=== PATIENT | female | born 1960 | race Caucasian/White ===

== ENCOUNTER 2016-07-06 05:53 | Inpatient (IN) | payer OTHER ==
[2016-06-28 16:33] LABS: BASOPHILS 0.5 %; BASOPHILS ABSOLUTE 0.02 10/3/uL (0.0-0.16); EOSINOPHILS ABSOLUTE 0.24 10/3/uL (0.0-0.53); HEMATOCRIT 38.1 % (36.0-48.0); HEMOGLOBIN 12.9 g/dL (12.0-16.0); IMMATURE GRANULOCYTES 0.2 %; IMMATURE GRANULOCYTES ABSOLUTE 0.01 10/3/uL (0.0-0.11); LYMPHOCYTES 39.4 %; LYMPHOCYTES ABSOLUTE 1.58 10/3/uL (0.67-4.30); MEAN CORPUS HGB CONC 33.9 g/dL (32.0-36.0); MEAN CORPUSCULAR HEMOGLOB 32.2 pg (26.0-34.0); MEAN PLATELET VOLUME 9.8 fL (9.2-13.0); MONOCYTES 5.5 %; MONOCYTES ABSOLUTE 0.22 10/3/uL (0.21-1.20); NEUTROPHILS 48.4 %; NEUTROPHILS ABSOLUTE 1.94 10/3/uL (2.02-8.40); PLATELET COUNT 279 10/3/uL (150-400); RBC DISTRIBUTION WIDTH 14.5 % (12.0-16.0); RED CELL COUNT 4.01 10/6/uL (4.0-5.6)
[2016-06-28 16:34] LABS: MANUAL DIFF NO %
[2016-06-28 16:43] LABS: INTERNATIONAL NORMAL RATI 1.2 UNITS (-); PROTIME (NOT ORD) 14.6 SEC (12.0-14.5)
[2016-06-28 16:44] LABS: PARTIAL THROMBO TIME 38.5 SEC (22.5-37.2)
[2016-06-28 16:51] LABS: ALBUMIN 4.4 G/DL (3.5-5.0); ALKALINE PHOSPHATASE 165 U/L (45-117); BUN (BLOOD UREA NITROGEN) 19 MG/DL (6-23); CALCIUM, SERUM 9.1 MG/DL (8.5-10.4); CHLORIDE, SERUM 107 MMOL/L (96-112); CO2 (CARBON DIOXIDE) 23 MMOL/L (24-34); CREATININE 1.23 MG/DL (0.55-1.02); GFR AFRICAN AMERICAN 57 ML/MIN (>=60); GFR NON AFRICAN AMERICAN 49 ML/MIN (>=60); GLOBULIN 4.2 G/DL (2.5-4.1); GLUCOSE, SERUM 100 MG/DL (60-99); POTASSIUM, SERUM 3.7 MMOL/L (3.5-5.3); SGOT(AST) 69 U/L (5-40); SGPT(ALT) 82 U/L (5-65); SODIUM, SERUM 141 MMOL/L (135-148); TOTAL BILIRUBIN 0.7 MG/DL (0-1.2); TOTAL PROTEIN 8.6 G/DL (6.0-8.5)
--- NOTE | ~2016-07-06 | PREOPHP ---
PreOp History and Physical [facility] [address] [place]. [address] NAME: JASMYN MOLINA : 58 STATUS : PRE IN PAT#: [id number] AGE: 55 ADM/REG DATE : MR#: [id number] REPORT SERV DATE: 07/06/16 DICTATED BY: ERIKA URBAN III DATE: 06/18/16 REPORT STATUS : Draft TRANSCRIBED BY: MODL DATE: 06/18/16 HISTORY OF PRESENT ILLNESS: This 55-year-old female comes for partial gastrectomy for a nonhealing gastric ulcer refractory to nonoperative management. The patient has a documented antral ulcer which been present for almost one year. This has been refractory and unresponsive to aggressive medical management. Repeat endoscopies continued to show a crated ulcer in the gastric antrum, about 1 cm in size. This has been associated with abdominal pain, nausea, and heartburn. The patient's symptoms have become progressively worse and interfering with her quality of life. The pain has become progressively worse as well. The patient is felt to have failed nonoperative management. She comes now for partial gastrectomy. PAST MEDICAL HISTORY: 1. Hypertension. 2. Bueno's esophagitis. 3. Depression. 4. History of migraine headaches. MEDICATIONS: Phenergan; Prograf; dicyclomine; Imuran; and amlodipine. ALLERGIES: MORPHINE, ZOFRAN, AND ZOSYN. PAST SURGICAL HISTORY: Includes liver transplant and appendectomy. FAMILY HISTORY: Remarkable for stroke. SOCIAL HISTORY: No history of tobacco or alcohol use. REVIEW OF SYSTEMS: The patient complains of abdominal pain, shortness of breath, reflux, indigestion, nausea, vomiting, frequent headaches, anxiety, and depression. PHYSICAL EXAMINATION: GENERAL: This is a female, in no acute distress. She is alert and oriented x3. VITAL SIGNS: Blood pressure 129/82, pulse 89, and temperature is 98.4. HEENT: Unremarkable. Cranial nerves 2 through 12 are normal. LUNGS: Clear. CARDIAC: Normal. ABDOMEN: Soft and nontender. EXTREMITIES: Unremarkable. LABORATORY: Panendoscopy performed 05/25/2016 shows a crated ulcer in the gastric antrum, 1 cm in size, deeply cratered at 8 mm deep. Gastritis is also noted. Biopsy shows acute gastritis with ulceration. Previous endoscopies including endoscopy on 04/27/2016 showed this same ulcer which has failed to heal. ASSESSMENT: PreOp History and Physical [address] [address] NAME: JASMYN MOLINA : 58 STATUS : PRE IN PAT#: [id number] AGE: 55 ADM/REG DATE : MR#: [id number] REPORT SERV DATE: 07/06/16 DICTATED BY: ERIKA URBAN III DATE: 06/18/16 REPORT STATUS : Draft TRANSCRIBED BY: MODL DATE: 06/18/16 1. This is a 55-year-old female with nonhealing gastric ulcer, refractory to medical management, associated with severe abdominal pain. 2. History of liver transplant in the past. 3. Migraine headaches. 4. Depression. 5. Hypertension. PLAN: The patient comes to the operating room now for partial gastrectomy. This procedure, the risks, benefits, and alternatives, including but not limited to the risk for bleeding, infection, enterotomy, injury to abdominal structure, postop small bowel obstruction, ileus, incisional hernia, dehiscence, anastomotic leak, resulting in peritonitis, sepsis, and , and requiring reoperation, duodenal stump leak resulting in peritonitis, sepsis, and , common bile duct injury, bile leak, gastroparesis, gastric outlet obstruction, recurrent ulcer disease, the fact that her nutritional habits will be changed by the gastrectomy and unforeseen complications including deep venous thrombosis, pulmonary embolus, myocardial infarction, stroke, pneumonia, and , have been fully and completely explained to the patient at length prior to surgery. The fact that this is a major operation with risk for major morbidity and mortality has been explained. The expected length of recovery has been explained. The patient's questions have been answered. She fully and completely understands the risks and agrees to the surgery as planned. HAI/BRIANA Erika Urban III, M.D. / [id number]
--- NOTE | ~2016-07-06 | DS ---
Discharge Summary [facility] [address] [place]. [address] NAME: JASMYN MOLINA : 58 STATUS : DIS IN PAT#: [id number] AGE: 55 ADM/REG DATE : 07/06/16 MR#: [id number] REPORT SERV DATE: 07/25/16 DICTATED BY: ERIKA URBAN III DATE: 07/24/16 REPORT STATUS : Draft TRANSCRIBED BY: BRIANA DATE: 07/24/16 Data Collection from hospitalization DISCHARGE DIAGNOSES: 1. Distal gastric ulcer refractory to nonoperative management with history of liver transplant. 2. Hypertension. 3. Bueno esophagitis. 4. Depression. 5. History of migraine headaches. CONSULTATIONS: None. PROCEDURES PERFORMED: Distal gastrectomy with Billroth II gastrojejunostomy on 07/06/2016. PATHOLOGY: Distal stomach partial gastrectomy - acute gastritis with ulcer. No intestinal metaplasia or dysplasia. Margins viable. MEDICATIONS: Norvasc 10 mg every morning, Imuran 75 mg twice a day, Bentyl 20 mg twice a day, Percocet 7.5/325 one tablet times a day as needed, Protonix 40 mg every morning, Phenergan 25 mg every six hours as needed/25 mg three times a day as needed, and Prograf 2 mg twice a day. CONDITION AT DISCHARGE: Stable. DISPOSITION: The patient was discharged home on a soft post gastrectomy diet with activities as instructed. She would follow up with me on 07/31/2016. HOSPITAL COURSE: This is a 55-year-old female who has a history of distal gastric ulcer, which had been refractory to medical management. The patient had been on appropriate medical management chronically and the ulcer has persisted in spite of this. This had been associated with severe symptoms. It was felt that partial gastrectomy was indicated for this antral ulcer, which has failed to heal. Treatment options were discussed and it was elected to proceed with surgical intervention. She was admitted to the hospital at this time for further evaluation and treatment. Upon admission, she was taken to the operating room where she underwent the above-mentioned procedure. She tolerated this well, and there were no complications. Postoperatively, the epidural catheter was removed and the tip was intact. Dilaudid DENTAL PROSTHETIST was started. On postop day #1, she had some nausea. She remained afebrile. Her abdomen was soft. She was being held n.p.o. with the NG tube in place. On 07/08/2016, she did complain of pain and nausea. She had no vomiting at this time. She had no shortness of breath. The Campbell catheter remained in place. DENTAL PROSTHETIST Dilaudid was increased. On 07/09/2016, she was evaluated by Physical Therapy. She was up sitting in a chair. She was beginning to ambulate. Her pain was controlled with the DENTAL PROSTHETIST. The Campbell catheter was removed. NG tube was at gravity drainage. She continued to have some nausea. Reglan was provided. On 07/12/2016, she said she was feeling better and had less nausea. She was passing gas per Discharge Summary [address] [address] NAME: JASMYN MOLINA : 58 STATUS : DIS IN [facility]#: [id number] AGE: 55 ADM/REG DATE : 07/06/16 MR#: [id number] REPORT SERV DATE: 07/25/16 DICTATED BY: ERIKA URBAN III DATE: 07/24/16 REPORT STATUS : Draft TRANSCRIBED BY: MODL DATE: 07/24/16 rectum. The NG tube was still in place. The next day, she had no further nausea. She was progressing well. The NG tube was removed. Clear liquids were started. On 07/14/2016, IV fluids were discontinued. She was placed on full liquids. She continued to do well. Over the next couple of days, discharge planning was performed. On 07/16/2016, she felt well and wanted to go home. She was eating well. Discharge instructions were given. Due to her improved and stable condition, she was discharged home with the above-stated instructions. Information collected by: Ginny Frias I submit the above information as my discharge summary. VALENTINA/BRIANA Erika Urban III, M.D. / [id number] CC: Angeles Amaya III, M.D.
--- NOTE | ~2016-07-06 | OP ---
Record Of Operation [facility] [address] [place]. [address] NAME: JASMYN MOLINA : 58 STATUS : ADM IN [facility]#: [id number] AGE: 55 ADM/REG DATE : 07/06/16 MR#: [id number] REPORT SERV DATE: 07/06/16 DICTATED BY: ERIKA URBAN III DATE: 07/06/16 REPORT STATUS : Draft TRANSCRIBED BY: MODSonam DATE: 07/06/16 DATE OF PROCEDURE: 07/06/2016 PREOPERATIVE DIAGNOSES: Distal gastric ulcer, refractory to nonoperative management with history of liver transplant. POSTOPERATIVE DIAGNOSES: Distal gastric ulcer, refractory to nonoperative management with history of liver transplant. PROCEDURE: Distal gastrectomy with Billroth 2 gastrojejunostomy. SURGEON: Erika Urban M.D. ANESTHESIA: General with intubation. COMPLICATIONS: None. ESTIMATED BLOOD LOSS: 25 mL. SPECIMENS: Distal stomach. DRAINS: Jarred-Browning in abdominal cavity and [place] in subcutaneous tissue. LAP AND SPONGE COUNT: Correct x3. BRIEF HISTORY: This 55-year-old female has a history of distal gastric ulcer which has been refractory to medical management. The patient has been on appropriate medical management chronically and the ulcer has persisted in spite of this. This has been associated with severe symptoms. It was felt that partial gastrectomy was indicated for this antral ulcer which has failed to heal. The surgery, the procedure risks, benefits, and alternatives, including but not limited to the risk for bleeding, infection, enterotomy, injury to abdominal structure, postop small bowel obstruction, ileus, incisional hernia, dehiscence, anastomotic leak, requiring reoperation or resulting in peritonitis, sepsis, and , gastroparesis gastric bowel obstruction, recurrent ulcer disease, duodenal stump leak resulting in peritonitis, sepsis, and , and unforeseen complications including deep venous thrombosis, pulmonary embolus, myocardial infarction, stroke, pneumonia, and , were fully and completely explained to the patient and family at length prior to surgery. The fact that this was a major operation with risk for major morbidity and mortality was explained as well as expected length of recovery. The possibility of gastroparesis and gastric outlet obstruction and changes in her dietary habits after surgery was explained. The patient's family had questions which were answered. They fully understood the risks and agreed to the surgery as planned. FINDINGS: The patient had an extremely large transplanted liver. This was densely adherent to the underside of the abdominal wall making entry into the abdominal cavity difficult and extended the length of procedure by 55%. For this reason, a modifier 22 was added to the Record Of Operation [facility] [address]. [address] NAME: JASMYN MOLINA : 58 STATUS : ADM IN PAT#: [id number] AGE: 55 ADM/REG DATE : 07/06/16 MR#: [id number] REPORT SERV DATE: 07/06/16 DICTATED BY: ERIKA URBAN III DATE: 07/06/16 REPORT STATUS : Draft TRANSCRIBED BY: MODL DATE: 07/06/16 procedure code. The patient had a chronic deep ulcer in the distal antrum. PROCEDURE IN DETAIL: After being properly identified and after discussing the risks of surgery with the patient and the family again in the preoperative area, she was taken to the operating room and placed in the supine position on the operating room table. General anesthesia was administered. She was intubated without difficulty. A Campbell catheter and an NG tube were inserted. The abdomen was prepped and draped sterilely in the usual fashion. After an appropriate "time-out" per JCAHO standards, a midline incision was made from just beneath the xiphoid process towards the umbilicus. The incision was continued through the subcutaneous tissue. Hemostasis was controlled with cautery. The incision was continued through the fascia. We entered the abdominal cavity very carefully. The patient was noted to have a very enlarged transplanted liver which extended midway between the xiphoid process and the umbilicus. The liver was densely adherent to the underside of the abdominal wall. The liver capsule was adherent to the fascia. Using careful and sharp dissection, the abdominal cavity was entered and the liver capsule was dissected away from the abdominal wall taking great care not to injure the liver. In this way, we were able to enter the right upper quadrant. The liver itself appeared to be normal other than being somewhat enlarged. There was no evidence for carcinomatosis. There was a palpable ulcer in the distal antrum at the level of the pylorus corresponding to a palpable mass. The exploration was otherwise unremarkable. With the abdominal cavity entered, the greater curve of the stomach was defined from the midbody of the stomach to the pylorus. The gastrocolic ligament was divided along the greater curve of the stomach. Using Harmonic scalpel again from the mid body of the stomach to the pylorus. Similarly, the corresponding portion of the lesser curve of the stomach was also exposed by dividing the lesser omentum. We divided the stomach transversely with the TAMARA stapler, at the junction of the antrum and the body. The dissection was continued to just beyond the pylorus. The first portion of the duodenum was then divided with a TA-60 stapler. The distal stomach or antrum and proximal duodenum was thus removed and sent to pathology interpreted as containing the ulcer. The duodenal stump was then oversewn with interrupted 3-0 silk sutures. This resulted in good inversion of the stump with no tension. We then performed an [id number] side jejunal anastomosis in a Billroth II fashion. We identified the ligament of Treitz and the proximal jejunum just beyond this was brought through a window in the mesentery to the transverse colon. The gastrojejunostomy was performed in two layers, using interrupted 3-0 silk sutures on the outer posterior layer, running 3-0 chromic suture on the inner layer, and interrupted 3-0 silk sutures on the outer anterior layer. The lesser curve of the stomach which was not using the anastomosis was oversewn with interrupted 3-0 silk sutures. The injury too was positioned just proximal to the anastomosis. Upon completion of this, the anastomosis was widely patent to palpation. It was not twisted or kinked in any way. It was not in any tension. It was secured to the mesentery of the transverse colon with interrupted 3-0 silk sutures. Great care was taken to be certain that the afferent and efferent limbs were in good position and not twisted or kinked in any way. Record Of Operation [facility] [address] [facility] [place]. [address] NAME: JASMYN MOLINA : 58 STATUS : ADM IN [facility]#: [id number] AGE: 55 ADM/REG DATE : 07/06/16 MR#: [id number] REPORT SERV DATE: 07/06/16 DICTATED BY: ERIKA URBAN III DATE: 07/06/16 REPORT STATUS : Draft TRANSCRIBED BY: MODL DATE: 07/06/16 The entire abdominal cavity was irrigated copiously with saline. Hemostasis was assured. Evicel glue was placed over the duodenal stump. A Jarred-Browning drain was brought through a separate stab wound and to the right incision and placed in the right upper quadrant. The fascia was then carefully closed with a running looped #1 PDS suture. The subcutaneous tissue was closed with running 3-0 chromic suture over a [place] drain which was brought out through the inferior aspect of the incision. The skin was closed with running subcuticular 4-0 Monocryl stitch. Dressings were applied. Anesthesia was reversed. The patient was taken to the recovery room in stable condition. She tolerated the procedure well. Her family was informed of the results of surgery. The patient will remain in the hospital for postoperative care. RHJ/HAIML Erika Urban III, M.D. / [id number] CC: Angeles Amaya III, MD
[~2016-07-06 05:53] MED LIST: *UNABLE3; ACTONEL150 MG PO; AMIT25 PO; AUG500 PO; BENTYL20 PO; BLOOD PRESSURE RX PO; DOMPERIDONE; FISH-EPA1000 MG PO; FLOVENT110 INH; HORMONE PATCH; IMU PO; KAPIDEX60 MG PO; KLONO5 PO; NEUR300 PO; NEXIUM; NEXIUM20 M1 PO; NEXIUM40 PO; NORCO1 TA1 PO; NORV10 PO; NYS500UDL PO; OXYCOD PO; PHENADOZ12.5 MG RE; PR12.5 PO; PR25 PO; PR25R PR; PRILO PO; PROGRAF0.5 PO; PROGRAF1; PROGRAF1 OR; PROGRAF1 PO; PROTONIX PO; SUCR PO; TOPAMAX25 PO; TRAZ100 PO; X5 PO; ZOL50 PO
[2016-07-07 13:04] LABS: BASOPHILS 0 %; EOSINOPHILS 0.1 %; EOSINOPHILS ABSOLUTE 0.01 10/3/uL (0.0-0.53); HEMATOCRIT 37.5 % (36.0-48.0); HEMOGLOBIN 13.4 g/dL (12.0-16.0); IMMATURE GRANULOCYTES 0.4 %; IMMATURE GRANULOCYTES ABSOLUTE 0.04 10/3/uL (0.0-0.11); LYMPHOCYTES ABSOLUTE 1.25 10/3/uL (0.67-4.30); MEAN CORPUSCULAR HEMOGLOB 33.6 pg (26.0-34.0); MEAN PLATELET VOLUME 9.3 fL (9.2-13.0); MONOCYTES 6.5 %; MONOCYTES ABSOLUTE 0.74 10/3/uL (0.21-1.20); NEUTROPHILS ABSOLUTE 9.35 10/3/uL (2.02-8.40); PLATELET COUNT 249 10/3/uL (150-400); RBC DISTRIBUTION WIDTH 14.4 % (12.0-16.0); RED CELL COUNT 3.99 10/6/uL (4.0-5.6)
[2016-07-07 13:06] LABS: MANUAL DIFF NO %; MEAN CORPUS HGB CONC 35.7 g/dL (32.0-36.0); WHITE BLOOD CELLS 11.4 10/3/uL (4.5-10.5)
[2016-07-07 13:16] LABS: ALKALINE PHOSPHATASE 163 U/L (45-117); CREATININE 0.83 MG/DL (0.55-1.02); GFR AFRICAN AMERICAN 91 ML/MIN (>=60); GFR NON AFRICAN AMERICAN 79 ML/MIN (>=60); POTASSIUM, SERUM 3.7 MMOL/L (3.5-5.3); SGOT(AST) 141 U/L (5-40); SGPT(ALT) 106 U/L (5-65); SODIUM, SERUM 135 MMOL/L (135-148); TOTAL PROTEIN 7.5 G/DL (6.0-8.5)
[2016-07-07 13:17] LABS: A/G RATIO 0.8 (0.7-1.9); ALBUMIN 3.4 G/DL (3.5-5.0); BUN (BLOOD UREA NITROGEN) 8 MG/DL (6-23); CALCIUM, SERUM 7.9 MG/DL (8.5-10.4); CHLORIDE, SERUM 97 MMOL/L (96-112); CO2 (CARBON DIOXIDE) 28 MMOL/L (24-34); GLOBULIN 4.1 G/DL (2.5-4.1); GLUCOSE, SERUM 164 MG/DL (60-99); TOTAL BILIRUBIN 1.3 MG/DL (0-1.2)
[2016-07-08 07:23] LABS: BASOPHILS 0.1 %; BASOPHILS ABSOLUTE 0.01 10/3/uL (0.0-0.16); EOSINOPHILS 0.1 %; EOSINOPHILS ABSOLUTE 0.01 10/3/uL (0.0-0.53); HEMOGLOBIN 12.3 g/dL (12.0-16.0); IMMATURE GRANULOCYTES 0.6 %; IMMATURE GRANULOCYTES ABSOLUTE 0.05 10/3/uL (0.0-0.11); MEAN CORPUS HGB CONC 35.1 g/dL (32.0-36.0); MEAN CORPUSCULAR HEMOGLOB 33.3 pg (26.0-34.0); MEAN CORPUSCULAR VOLUME 94.9 fL (80-100); MONOCYTES 7.9 %; NEUTROPHILS 74.3 %; NEUTROPHILS ABSOLUTE 6.56 10/3/uL (2.02-8.40); PLATELET COUNT 222 10/3/uL (150-400); RBC DISTRIBUTION WIDTH 14.6 % (12.0-16.0); RED CELL COUNT 3.69 10/6/uL (4.0-5.6); WHITE BLOOD CELLS 8.8 10/3/uL (4.5-10.5)
[2016-07-08 07:28] LABS: MANUAL DIFF NO %
[2016-07-08 07:37] LABS: BUN (BLOOD UREA NITROGEN) 7 MG/DL (6-23); CALCIUM, SERUM 8.3 MG/DL (8.5-10.4); CHLORIDE, SERUM 105 MMOL/L (96-112); CO2 (CARBON DIOXIDE) 27 MMOL/L (24-34); CREATININE 0.78 MG/DL (0.55-1.02); GFR AFRICAN AMERICAN 98 ML/MIN (>=60); GFR NON AFRICAN AMERICAN 85 ML/MIN (>=60); GLUCOSE, SERUM 132 MG/DL (60-99); POTASSIUM, SERUM 3.8 MMOL/L (3.5-5.3); SODIUM, SERUM 141 MMOL/L (135-148)
[2016-07-10 05:05] LABS: BASOPHILS 0 %; EOSINOPHILS 4.3 %; EOSINOPHILS ABSOLUTE 0.25 10/3/uL (0.0-0.53); HEMATOCRIT 28.8 % (36.0-48.0); IMMATURE GRANULOCYTES 0.2 %; IMMATURE GRANULOCYTES ABSOLUTE 0.01 10/3/uL (0.0-0.11); LYMPHOCYTES 23.3 %; LYMPHOCYTES ABSOLUTE 1.37 10/3/uL (0.67-4.30); MEAN CORPUS HGB CONC 34.7 g/dL (32.0-36.0); MEAN CORPUSCULAR HEMOGLOB 33.6 pg (26.0-34.0); MEAN CORPUSCULAR VOLUME 96.6 fL (80-100); MEAN PLATELET VOLUME 8.9 fL (9.2-13.0); MONOCYTES 8.8 %; MONOCYTES ABSOLUTE 0.52 10/3/uL (0.21-1.20); NEUTROPHILS 63.4 %; NEUTROPHILS ABSOLUTE 3.73 10/3/uL (2.02-8.40); PLATELET COUNT 191 10/3/uL (150-400); RBC DISTRIBUTION WIDTH 14.2 % (12.0-16.0); RED CELL COUNT 2.98 10/6/uL (4.0-5.6); WHITE BLOOD CELLS 5.9 10/3/uL (4.5-10.5)
[2016-07-10 05:06] LABS: MANUAL DIFF NO %
[2016-07-10 05:15] LABS: BUN (BLOOD UREA NITROGEN) 5 MG/DL (6-23); CALCIUM, SERUM 8.1 MG/DL (8.5-10.4); CHLORIDE, SERUM 104 MMOL/L (96-112); CO2 (CARBON DIOXIDE) 26 MMOL/L (24-34); GFR AFRICAN AMERICAN 96 ML/MIN (>=60); GFR NON AFRICAN AMERICAN 82 ML/MIN (>=60); GLUCOSE, SERUM 142 MG/DL (60-99); POTASSIUM, SERUM 3.6 MMOL/L (3.5-5.3); SODIUM, SERUM 140 MMOL/L (135-148)
[2016-07-11 05:54] LABS: BASOPHILS 0.2 %; BASOPHILS ABSOLUTE 0.01 10/3/uL (0.0-0.16); EOSINOPHILS 4.8 %; EOSINOPHILS ABSOLUTE 0.28 10/3/uL (0.0-0.53); HEMATOCRIT 29.1 % (36.0-48.0); HEMOGLOBIN 10.2 g/dL (12.0-16.0); IMMATURE GRANULOCYTES 0.3 %; IMMATURE GRANULOCYTES ABSOLUTE 0.02 10/3/uL (0.0-0.11); LYMPHOCYTES 27.3 %; LYMPHOCYTES ABSOLUTE 1.59 10/3/uL (0.67-4.30); MEAN CORPUS HGB CONC 35.1 g/dL (32.0-36.0); MEAN CORPUSCULAR HEMOGLOB 33.7 pg (26.0-34.0); MEAN PLATELET VOLUME 8.7 fL (9.2-13.0); MONOCYTES 9.9 %; MONOCYTES ABSOLUTE 0.58 10/3/uL (0.21-1.20); NEUTROPHILS 57.5 %; NEUTROPHILS ABSOLUTE 3.35 10/3/uL (2.02-8.40); PLATELET COUNT 184 10/3/uL (150-400); RBC DISTRIBUTION WIDTH 14.1 % (12.0-16.0); RED CELL COUNT 3.03 10/6/uL (4.0-5.6); WHITE BLOOD CELLS 5.8 10/3/uL (4.5-10.5)
[2016-07-11 05:57] LABS: MANUAL DIFF NO %
[2016-07-11 06:08] LABS: BUN (BLOOD UREA NITROGEN) 6 MG/DL (6-23); CALCIUM, SERUM 8.2 MG/DL (8.5-10.4); CHLORIDE, SERUM 105 MMOL/L (96-112); CO2 (CARBON DIOXIDE) 26 MMOL/L (24-34); GFR AFRICAN AMERICAN 83 ML/MIN (>=60); GFR NON AFRICAN AMERICAN 71 ML/MIN (>=60); GLUCOSE, SERUM 124 MG/DL (60-99); POTASSIUM, SERUM 3.4 MMOL/L (3.5-5.3); SODIUM, SERUM 141 MMOL/L (135-148)
[2016-07-12 05:48] LABS: BASOPHILS 0.2 %; BASOPHILS ABSOLUTE 0.01 10/3/uL (0.0-0.16); EOSINOPHILS 8.2 %; EOSINOPHILS ABSOLUTE 0.47 10/3/uL (0.0-0.53); HEMATOCRIT 30.5 % (36.0-48.0); HEMOGLOBIN 10.5 g/dL (12.0-16.0); IMMATURE GRANULOCYTES 0.2 %; IMMATURE GRANULOCYTES ABSOLUTE 0.01 10/3/uL (0.0-0.11); LYMPHOCYTES 38.4 %; MEAN CORPUS HGB CONC 34.4 g/dL (32.0-36.0); MEAN CORPUSCULAR HEMOGLOB 32.8 pg (26.0-34.0); MEAN CORPUSCULAR VOLUME 95.3 fL (80-100); MEAN PLATELET VOLUME 8.8 fL (9.2-13.0); MONOCYTES 8.7 %; NEUTROPHILS 44.3 %; NEUTROPHILS ABSOLUTE 2.54 10/3/uL (2.02-8.40); PLATELET COUNT 223 10/3/uL (150-400); WHITE BLOOD CELLS 5.7 10/3/uL (4.5-10.5)
[2016-07-12 05:58] LABS: BUN (BLOOD UREA NITROGEN) 4 MG/DL (6-23); CALCIUM, SERUM 7.9 MG/DL (8.5-10.4); CHLORIDE, SERUM 105 MMOL/L (96-112); CO2 (CARBON DIOXIDE) 26 MMOL/L (24-34); CREATININE 0.81 MG/DL (0.55-1.02); GFR AFRICAN AMERICAN 94 ML/MIN (>=60); GFR NON AFRICAN AMERICAN 81 ML/MIN (>=60); GLUCOSE, SERUM 132 MG/DL (60-99); POTASSIUM, SERUM 3.5 MMOL/L (3.5-5.3); SODIUM, SERUM 142 MMOL/L (135-148)
[2016-07-12 06:02] LABS: MANUAL DIFF NO %
[2016-07-13 06:51] LABS: BUN (BLOOD UREA NITROGEN) 5 MG/DL (6-23); CALCIUM, SERUM 8.2 MG/DL (8.5-10.4); CHLORIDE, SERUM 107 MMOL/L (96-112); CO2 (CARBON DIOXIDE) 23 MMOL/L (24-34); CREATININE 0.79 MG/DL (0.55-1.02); GFR AFRICAN AMERICAN 97 ML/MIN (>=60); GFR NON AFRICAN AMERICAN 84 ML/MIN (>=60); GLUCOSE, SERUM 129 MG/DL (60-99); POTASSIUM, SERUM 3.8 MMOL/L (3.5-5.3); SODIUM, SERUM 141 MMOL/L (135-148)
[2016-07-16] MEDS ORDERED: PERCOCET 7.5/321 TAB PO (09:18)
[2016-07-16] MEDS ORDERED: PR25 PO (09:19)
== END 2016-07-16 10:40 | disposition home or self-care (01) | DRG 327 ==
LOC: SDC/OF 05:53 → PACU 10:44 → 5SO 12:29
PROVIDERS: Surgery
PROC: 0D160ZA Bypass Stomach to Jejunum, Open Approach (ICD-10-PCS; 2016-07-06)
PROC: 0DB60ZZ Excision of Stomach, Open Approach (ICD-10-PCS; principal; 2016-07-06 08:00)
DX: K25.7 Chronic gastric ulcer without hemorrhage or perforation (principal); Z94.4 Liver transplant status; I10 Essential (primary) hypertension; F42.9 Obsessive-compulsive disorder, unspecified; F32.9 Major depressive disorder, single episode, unspecified; Z79.899 Other long term (current) drug therapy; Z82.3 Family history of stroke; Z88.8 Allergy status to other drugs, medicaments and biological substances; Z91.041 Radiographic dye allergy status; Z88.1 Allergy status to other antibiotic agents; Z88.5 Allergy status to narcotic agent
CPT/HCPCS: 36415; 71020; 74000; 80048; 80053; 85025; 85610; 85730; 86850; 86900; 86901; 88309; 93005; 97161-GP; A9270-GY; C9113; J0690; J1170; J1885; J2250; J2370; J2550; J2710; J2765; J3010; J7500; J7507